=== PATIENT | female | born 1970 | race Caucasian/White ===

== ENCOUNTER 2016-11-09 17:17 | Emergency (ER) | payer MEDICAID ==
[~2016-11-09] VITALS: Ht 149.9 cm; Wt 50.9 kg
[2016-11-09 17:20] VITALS: BP 110/74
[2016-11-09] MEDS ORDERED: KETOROLAC 30 MG/1 ML ONE (18:25)
[2016-11-09] MEDS ORDERED: KETOROLAC 30 MG/1 ML IM ONE (18:30)
== END 2016-11-09 18:40 | disposition home or self-care (01) ==
LOC: ED 18:07
DX: M25.511 Pain in right shoulder (principal); J45.909 Unspecified asthma, uncomplicated
CPT/HCPCS: 73030; 96372; 99284; J1885

== ENCOUNTER 2016-11-28 19:38 | Emergency (ER) | payer MEDICAID ==
[~2016-11-28] VITALS: Ht 149.9 cm; Wt 53.0 kg
[2016-11-28] MEDS ORDERED: DIPH,PERTUSS(ACELL),TET VAC/PF 0.5 ML IM-VACC ONE ×2 (20:00→20:15)
[2016-11-28] MEDS ORDERED: HYDROcodone/APAP 5/325 TABLET PO ONE (20:00)
[2016-11-28] MEDS ORDERED: L.E.T SOLUTION TP ONE ×2 (20:00→20:24)
[2016-11-28] MEDS ORDERED: CEFAZOLIN 1,000 MG IM ONE (20:00)
[2016-11-28] MEDS ORDERED: HYDROcodone/APAP 5/325 TABLET ONE (20:15)
[2016-11-28] MEDS ORDERED: LIDOCAINE 1%, 20ML ONE ×2 (20:17→20:26)
[2016-11-28] MEDS ORDERED: LIDOCAINE 0.5%-EPI 1:200K, 50ML INFIL ONE (20:30)
[2016-11-28] MEDS ORDERED: AMOXICILLIN/CLAV 875-125MG TABLET PO ONE (21:30)
[2016-11-28 21:40] VITALS: BP 102/64
== END 2016-11-28 21:45 | disposition home or self-care (01) ==
LOC: ED 21:41
DX: S81.812A Laceration without foreign body, left lower leg, initial encounter (principal); W54.0XXA Bitten by dog, initial encounter; Y93.89 Activity, other specified; Y92.89 Other specified places as the place of occurrence of the external cause; Y99.8 Other external cause status
CPT/HCPCS: 12002; 90471; 90715

== ENCOUNTER 2016-12-04 07:50 | Emergency (ER) | payer MEDICAID ==
[~2016-12-04] VITALS: Ht 157.5 cm; Wt 50.4 kg
[2016-12-04 07:58] VITALS: BP 99/61
== END 2016-12-04 09:47 | disposition home or self-care (01) ==
LOC: ED 09:41
DX: L03.116 Cellulitis of left lower limb (principal); J45.909 Unspecified asthma, uncomplicated
CPT/HCPCS: 99283

== ENCOUNTER 2016-12-08 10:30 | Emergency (ER) | payer MEDICAID ==
[~2016-12-08] VITALS: Ht 149.9 cm; Wt 51.5 kg
[2016-12-08 10:33] VITALS: BP 116/70
== END 2016-12-08 11:19 | disposition home or self-care (01) ==
LOC: ED 10:48
DX: S81.812D Laceration without foreign body, left lower leg, subsequent encounter (principal); W54.0XXA Bitten by dog, initial encounter; Y93.89 Activity, other specified; Y92.89 Other specified places as the place of occurrence of the external cause; Y99.8 Other external cause status
CPT/HCPCS: 99281

== ENCOUNTER 2017-04-20 17:21 | Emergency (ER) | payer MEDICAID ==
[~2017-04-20] VITALS: Ht 149.9 cm; Wt 54.5 kg
[2017-04-20 17:24] VITALS: BP 99/64
[2017-04-20] MEDS ORDERED: KETOROLAC 30 MG/1 ML ONE (17:42)
[2017-04-20] MEDS ORDERED: KETOROLAC 30 MG/1 ML IM ONE (18:00)
== END 2017-04-20 18:35 | disposition home or self-care (01) ==
LOC: ED 18:05
DX: M25.511 Pain in right shoulder (principal); M79.621 Pain in right upper arm; M25.521 Pain in right elbow; J45.909 Unspecified asthma, uncomplicated
CPT/HCPCS: 73030; 73080; 96372; 99284; J1885

== ENCOUNTER 2017-06-01 18:12 | Emergency (ER) | payer MEDICAID ==
[~2017-06-01] VITALS: Ht 149.9 cm; Wt 54.0 kg
[2017-06-01 18:18] VITALS: BP 100/64
== END 2017-06-01 19:36 | disposition home or self-care (01) ==
LOC: ED 19:25
DX: S60.212A Contusion of left wrist, initial encounter (principal); G89.11 Acute pain due to trauma; J45.909 Unspecified asthma, uncomplicated; W01.198A Fall on same level from slipping, tripping and stumbling with subsequent striking against other object, initial encounter; Y93.89 Activity, other specified; Y92.89 Other specified places as the place of occurrence of the external cause; Y99.8 Other external cause status
CPT/HCPCS: 29125; 99284

== ENCOUNTER 2017-08-01 14:36 | Emergency (ER) | payer MEDICAID ==
[~2017-08-01] VITALS: Ht 149.9 cm; Wt 56.2 kg
[2017-08-01 15:01] VITALS: BP 101/67
== END 2017-08-01 16:29 | disposition home or self-care (01) ==
LOC: ED 16:23
DX: J15.9 Unspecified bacterial pneumonia (principal); J45.909 Unspecified asthma, uncomplicated
CPT/HCPCS: 71020; 99284

== ENCOUNTER 2018-03-23 18:48 | Emergency (ER) | payer SELFPAY ==
[~2018-03-23] VITALS: Ht 149.9 cm; Wt 56.2 kg
[2018-03-23] MEDS ORDERED: IBUPROFEN 200 MG TABLET ONE (19:53)
[2018-03-23] MEDS ORDERED: IBUPROFEN 200 MG TABLET PO ONE (20:00)
[2018-03-23 20:02] VITALS: BP 100/60
== END 2018-03-23 20:07 | disposition home or self-care (01) ==
LOC: ED 20:00
DX: M77.8 Other enthesopathies, not elsewhere classified (principal); Z91.14 Patient's other noncompliance with medication regimen; J45.909 Unspecified asthma, uncomplicated; F17.200 Nicotine dependence, unspecified, uncomplicated
CPT/HCPCS: 99284

== ENCOUNTER 2018-07-20 09:54 | Emergency (ER) | payer SELFPAY ==
[~2018-07-20] VITALS: Ht 149.9 cm; Wt 56.7 kg
[2018-07-20 10:17] VITALS: BP 106/74
== END 2018-07-20 12:06 | disposition home or self-care (01) ==
LOC: ED 12:05
DX: J20.9 Acute bronchitis, unspecified (principal); J02.9 Acute pharyngitis, unspecified; R91.8 Other nonspecific abnormal finding of lung field; J45.909 Unspecified asthma, uncomplicated; F17.200 Nicotine dependence, unspecified, uncomplicated
CPT/HCPCS: 71046; 99283

== ENCOUNTER 2019-03-14 16:08 | Emergency (ER) | payer OTHER ==
[~2019-03-14] VITALS: Ht 149.9 cm; Wt 66.0 kg
[2019-03-14 16:23] VITALS: BP 95/68
== END 2019-03-14 17:50 | disposition home or self-care (01) ==
LOC: ED 16:57
DX: S93.491A Sprain of other ligament of right ankle, initial encounter (principal); F17.200 Nicotine dependence, unspecified, uncomplicated; W01.0XXA Fall on same level from slipping, tripping and stumbling without subsequent striking against object, initial encounter; Y93.89 Activity, other specified; Y92.410 Unspecified street and highway as the place of occurrence of the external cause; Y99.8 Other external cause status
CPT/HCPCS: 99283

== ENCOUNTER 2019-07-25 07:44 | Emergency (ER) | payer OTHER ==
[~2019-07-25] VITALS: Ht 149.9 cm; Wt 70.5 kg
[2019-07-25 07:51] VITALS: BP 113/78
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
[2019-07-25 08:33] LABS: RAPID INFLUENZA A Negative (Negative); RAPID INFLUENZA B Negative (Negative)
--- NOTE | 2019-07-25 08:39 | NUR ---
RADIOLOGY AT BEDSIDE.
--- NOTE | 2019-07-25 08:51 | NUR ---
REPORT RECEIVED FROM BETTY DUNCAN. CARE ASSUMED. PLAN OF CARE IS PENDING RADIOLOGY RESULTS.
--- NOTE | 2019-07-25 09:12 | NUR ---
PA AT BEDSIDE FOR REASSESSMENT.
--- NOTE | 2019-07-25 09:50 | NUR ---
Patient/Caregiver given discharge instructions and they have confirmed that they understand the instructions. Patient ambulatory with steady gait.
== END 2019-07-25 09:52 | disposition home or self-care (01) ==
LOC: ED 09:06
DX: J06.9 Acute upper respiratory infection, unspecified (principal); J45.909 Unspecified asthma, uncomplicated; F17.200 Nicotine dependence, unspecified, uncomplicated
CPT/HCPCS: 71046; 87400; 99284

== ENCOUNTER 2020-04-30 20:35 | Emergency (ER) | payer OTHER ==
[~2020-04-30] VITALS: Ht 149.9 cm; Wt 66.4 kg
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
[2020-04-30] MEDS ORDERED: ASPI1TAB31 PO (20:57)
[2020-04-30 20:59] VITALS: BP 103/69
--- NOTE | 2020-04-30 21:06 | NUR ---
PT REPORT TO BETTY IBANEZ. PT CARE TRANSFERRED.
== END 2020-04-30 22:41 | disposition home or self-care (01) ==
LOC: ED 22:25
DX: S50.02XA Contusion of left elbow, initial encounter (principal); V03.19XA Pedestrian with other conveyance injured in collision with car, pick-up truck or van in traffic accident, initial encounter; Y93.89 Activity, other specified; Y92.410 Unspecified street and highway as the place of occurrence of the external cause; Y99.8 Other external cause status
CPT/HCPCS: 99283

== ENCOUNTER 2020-07-07 20:04 | Emergency (ER) | payer OTHER ==
[~2020-07-07] VITALS: Ht 149.9 cm; Wt 61.5 kg
[~2020-07-07 20:04] MED LIST: ASPI1TAB31 PO
[2020-07-07 20:08] VITALS: BP 120/69
--- NOTE | 2020-07-07 20:11 | NUR ---
PA TO SEE IN TRIAGE
[2020-07-07] MEDS ORDERED: LIDOCAINE 1%, 10ML INFIL ONE (20:30)
[2020-07-07] MEDS ORDERED: DIPH,PERTUSS(ACELL),TET VAC/PF 0.5 ML IM-VACC ONE (20:30)
[2020-07-07] MEDS ORDERED: LIDOCAINE-MPF 1%, 5ML ONE (21:38)
--- NOTE | 2020-07-07 21:41 | NUR ---
pt reports tetanus up to date
--- NOTE | 2020-07-07 21:58 | NUR ---
Patient/Caregiver given discharge instructions and they have confirmed that they understand the instructions. Patient ambulatory with steady gait.
== END 2020-07-07 22:49 | disposition home or self-care (01) ==
LOC: ED 21:04
DX: S61.411A Laceration without foreign body of right hand, initial encounter (principal); X58.XXXA Exposure to other specified factors, initial encounter; Y93.89 Activity, other specified; Y92.69 Other specified industrial and construction area as the place of occurrence of the external cause; Y99.0 Civilian activity done for income or pay
CPT/HCPCS: 12041; 99284

== ENCOUNTER 2020-08-12 11:07 | Emergency (ER) | payer MEDICAID, OTHER ==
[~2020-08-12] VITALS: Ht 149.9 cm; Wt 58.2 kg
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
[2020-08-12] MEDS ORDERED: LIDOCAINE-MPF 1%, 5ML ONE (11:52)
[2020-08-12] MEDS ORDERED: LIDOCAINE-MPF 1%, 5ML INFIL ONE (12:00)
[2020-08-12 12:20] VITALS: BP 100/60
== END 2020-08-12 12:22 | disposition home or self-care (01) ==
LOC: ED 12:07
DX: L02.412 Cutaneous abscess of left axilla (principal); J45.909 Unspecified asthma, uncomplicated
CPT/HCPCS: 10060; 99283